=== PATIENT | female | born 1965 | race Caucasian/White ===

== ENCOUNTER 2021-12-04 08:39 | Outpatient (CLI) | payer BC, SELFPAY ==
--- NOTE | 2021-12-04 08:45 | CRLHL7_ITS ---
For Patients: As a result of the Century Cures Act, medical imaging exams and procedure reports are released immediately into your electronic medical record. You may view this report before your referring provider. If you have questions, please contact your health care provider. BILATERAL SCREENING MAMMOGRAM WITH COMPUTER-AIDED DETECTION AND TOMOSYNTHESIS TECHNIQUE: CC and MLO views were obtained. These mammographic images have been obtained using full-field digital technique. These mammographic images were interpreted with the benefit of computer-aided detection. Breast Tomosynthesis was used in this interpretation. COMPARISON FILM: 07/08/20, 12/24/18, 09/18/17. FINDINGS: The breasts are heterogeneously dense, which may obscure small masses IMPRESSION: There is no radiographic evidence for malignancy. ASSESSMENT: BI-RADS Category 1: Negative RECOMMENDATION: Routine screening mammogram in 1 year. A lay language report of this examination will be provided to the patient. Dontrell Sosa M.D. Diagnostic Radiologist [email or web address] Transcribed: 3:57 pm DW/Dictated by: Dontrell Sosa MD @ 12/04/2021 10:51:00 AM (Electronically Signed)
== END 2021-12-04 08:40 | disposition home or self-care (01) ==
LOC: MAMMO 08:40
PROVIDERS: Visit Provider Obstetrics & Gynecology
DX: Z12.31 Encounter for screening mammogram for malignant neoplasm of breast (principal)
CPT/HCPCS: 77063; 77067

== ENCOUNTER 2022-03-14 15:56 | Outpatient (CLI) | payer BC, SELFPAY ==
[2022-03-14 10:06] LABS: Cholesterol* 248 mg/dL (90-199); HDL Cholesterol* 89 mg/dL (>=50); LDL Cholesterol Calculated 147 mg/dL (<100); Triglycerides* 62 mg/dL (40-149)
== END 2022-03-14 15:57 | disposition home or self-care (01) ==
PROVIDERS: Visit Provider Obstetrics & Gynecology
DX: Z01.419 Encounter for gynecological examination (general) (routine) without abnormal findings (principal); Z13.6 Encounter for screening for cardiovascular disorders
CPT/HCPCS: 80061

== ENCOUNTER 2023-04-09 13:48 | Outpatient (CLI) | payer BC, SELFPAY ==
--- NOTE | 2023-04-09 14:00 | CRLHL7_ITS ---
For Patients: As a result of the Century Cures Act, medical imaging exams and procedure reports are released immediately into your electronic medical record. You may view this report before your referring provider. If you have questions, please contact your health care provider. BILATERAL SCREENING MAMMOGRAM WITH COMPUTER-AIDED DETECTION AND TOMOSYNTHESIS TECHNIQUE: CC and MLO views were obtained. These mammographic images have been obtained using full-field digital technique. These mammographic images were interpreted with the benefit of computer-aided detection. Breast tomosynthesis was used in this interpretation. COMPARISON FILM: 12/04/21, 07/08/20, 04/19/20. FINDINGS: There are scattered areas of fibroglandular density. IMPRESSION: There is no radiographic evidence for malignancy. ASSESSMENT: BI-RADS Category 1: Negative RECOMMENDATION: Routine screening mammogram in 1 year. A lay language report of this examination will be provided to the patient. DONTRELL CRUZ M.D. Diagnostic Radiologist [email or web address] Transcribed: 04/10/2023, 7:[address]/Dictated by: Dontrell Cruz MD @ 04/10/2023 9:16:00 AM (Electronically Signed)
== END 2023-04-09 13:49 | disposition home or self-care (01) ==
LOC: MAMMO 13:49
PROVIDERS: Visit Provider Obstetrics & Gynecology
DX: Z12.31 Encounter for screening mammogram for malignant neoplasm of breast (principal)
CPT/HCPCS: 77063; 77067

== ENCOUNTER 2023-05-29 14:15 | Outpatient (RCR) | payer BC, SELFPAY | END 2023-09-26 23:59 | disposition home or self-care (01) | PROVIDERS: Visit Provider Family Medicine | DX: M51.36 Other intervertebral disc degeneration, lumbar region (principal); M54.50 Low back pain, unspecified; M79.605 Pain in left leg; Z51.89 Encounter for other specified aftercare | CPT/HCPCS: 80061; 82947; 97110; 97140; 97162 ==

== ENCOUNTER 2024-08-19 07:43 | Outpatient (CLI) | payer BC, SELFPAY | END 2024-08-19 07:44 | disposition home or self-care (01) | LOC: NFLDREF 08-21 03:54 | PROVIDERS: Visit Provider Obstetrics & Gynecology | DX: R53.83 Other fatigue (principal); Z13.6 Encounter for screening for cardiovascular disorders | CPT/HCPCS: 80061; 84443 ==

== ENCOUNTER 2024-11-16 14:59 | Outpatient (CLI) | payer BC, SELFPAY ==
--- NOTE | 2024-11-16 15:00 | CRLHL7_ITS ---
For Patients: As a result of the Century Cures Act, medical imaging exams and procedure reports are released immediately into your electronic medical record. You may view this report before your referring provider. If you have questions, please contact your health care provider. INDICATION: BILATERAL SCREENING MAMMOGRAM, ASYMPTOMATIC 59 Y/O FEMALE COMPARISON: 04/09/2023, 12/04/2021, 07/08/2020 TECHNIQUE: Digital mammogram in CC and MLO projections including computer-aided detection (CAD) and tomosynthesis. BREAST COMPOSITION: There are scattered areas of fibroglandular density. FINDINGS: No suspicious findings. ASSESSMENT: BI-RADS 1 Negative RECOMMENDATION: Annual screening mammogram. A lay language report of this examination will be provided to the patient. Dictated by: Purvi Sarmiento MD @ 11/19/2024 09:09:23 (Electronically Signed)
== END 2024-11-16 15:00 | disposition home or self-care (01) ==
LOC: MAMMO 15:00
PROVIDERS: Visit Provider Obstetrics & Gynecology
DX: Z12.31 Encounter for screening mammogram for malignant neoplasm of breast (principal)
CPT/HCPCS: 77063; 77067

== ENCOUNTER 2024-12-17 09:57 | Outpatient (CLI) | payer BC, SELFPAY ==
--- NOTE | 2024-12-17 12:18 | P.ANES_ITS ---
Anesthesia Charges Start Date/Time Anesthesia Start Date: 12/17/24 Anesthesia Start Time: 11:45 Stop Date/Time Anesthesia Stop Date: 12/17/24 Anesthesia Stop Time: 12:16 Coding CPT Codes CPT Codes: ANES LWR INTST NDIL NOS - [id number] ([id number]) P1 - NORMAL HEALTHY PATIENT, QK - UTILIZATION MANAGEMENT UM NURSE 2-4 CNCRNT ANES PROC
--- NOTE | 2024-12-17 12:18 | W.ANESCHARGE ---
Anesthesia Charges Start Date/Time Anesthesia Start Date: 12/17/24 Anesthesia Start Time: 11:45 Stop Date/Time Anesthesia Stop Date: 12/17/24 Anesthesia Stop Time: 12:16 Coding CPT Codes CPT Codes: ANES LWR INTST NDNC NOS - [id number] ([id number]) P1 - NORMAL HEALTHY PATIENT, QK - ADVANCED REGISTERED NURSE 2-4 CNCRNT ANES PROC
--- NOTE | 2024-12-17 12:25 | P.ANES_ITS ---
Anesthesia Charges Start Date/Time Anesthesia Start Date: 12/17/24 Anesthesia Start Time: 11:45 Stop Date/Time Anesthesia Stop Date: 12/17/24 Anesthesia Stop Time: 12:16 Coding CPT Codes CPT Codes: MAYRA LWR INTST NDTX NOS - [id number] ([id number]) P1 - NORMAL HEALTHY PATIENT, QK - MECHATRONICS ENGINEER 2-4 CNCRNT ANES PROC, QX - STEEL TURNER SVC W/ MED DIRECTION
--- NOTE | 2024-12-17 12:25 | W.ANESCHARGE ---
Anesthesia Charges Start Date/Time Anesthesia Start Date: 12/17/24 Anesthesia Start Time: 11:45 Stop Date/Time Anesthesia Stop Date: 12/17/24 Anesthesia Stop Time: 12:16 Coding CPT Codes CPT Codes: MAYRA LWR INTST NDNM NOS - [id number] ([id number]) P1 - NORMAL HEALTHY PATIENT, QK - LEAD NEURODIAGNOSTIC TECHNOLOGIST 2-4 CNCRNT ANES PROC, QX - HEEL GOUGER SVC W/ MED DIRECTION
== END 2024-12-17 09:58 | disposition home or self-care (01) ==
LOC: OP CLINIC 09:58
PROVIDERS: Visit Provider Surgery
DX: Z12.11 Encounter for screening for malignant neoplasm of colon (principal); Z80.0 Family history of malignant neoplasm of digestive organs; D12.0 Benign neoplasm of cecum; D12.2 Benign neoplasm of ascending colon; D12.5 Benign neoplasm of sigmoid colon
CPT/HCPCS: 00811; 00812; 45385; 88305; J2704